=== PATIENT | male | born 1930 | race Caucasian/White ===

== ENCOUNTER 2017-12-07 07:00 | Day surgery (SDC) | payer OTHER ==
[~2017-12-07] VITALS: Ht 172.7 cm; Wt 65.8 kg
[~2017-12-07 07:00] MED LIST: AMARYL PO; DILTIAZEM ER60 MG PO; METFORMIN HCL500 M3 PO; SIMVASTATIN40 MG PO
== END 2017-12-08 12:00 | disposition home or self-care (01) ==
LOC: CIR.AMB 07:00 → O/R 09:33 → SURG 09:33 → EDSTATUS 09:45 → SURG 13:00 → O/R 15:44 → SURH 15:44 → SURG 15:45 → O/R 15:45 → CIR.AMB 12-08 12:00 → O/R 12-08 12:07 → SURG 12-08 12:07
DX: C67.5 Malignant neoplasm of bladder neck (principal); N40.1 Benign prostatic hyperplasia with lower urinary tract symptoms; R33.8 Other retention of urine